=== PATIENT | male | born 1960 | race Caucasian/White ===

== ENCOUNTER 2018-07-27 05:34 | Day surgery (SDC) | payer OTHER ==
[~2018-07-27] VITALS: Ht 185.4 cm; Wt 110.3 kg
[2018-07-27] VITALS (13 sets, daily range): BP systolic 110–125; BP diastolic 69–78; PULSE 56–69; RESP 13–26; Ht 185.4 cm; Wt 110.3 kg
[2018-07-27] MEDS ORDERED: CEFAZOLIN 2 GM/50 ML (PMX) 50 ML IVPB ONE (07:00)
[2018-07-27] MEDS ORDERED: AMLO-147 PO (07:10)
[2018-07-27] MEDS ORDERED: ATEN100T PO (07:10)
[2018-07-27] MEDS ORDERED: ATOR10TA65 PO (07:11)
[2018-07-27] MEDS ORDERED: BENA40TA56 PO (07:11)
[2018-07-27] MEDS ORDERED: OMEP40CA6 PO (07:12)
[2018-07-27] MEDS ORDERED: HYDR25TA6 PO (07:12)
[2018-07-27] MEDS ORDERED: SUCR1TAB56 PO (07:13)
[2018-07-27] MEDS ORDERED: TRA100 PO (07:14)
[2018-07-27] MEDS ORDERED: METH750T2 PO (07:15)
--- NOTE | 2018-07-27 07:35 | PREAC ---
Date/Time of Note Date/Time of Note DATE: 07/27/18 TIME: 07:34 Anesthesia Eval and Record Evaluation Time Pre-Procedure Interview DATE: 07/27/18 TIME: 07:34 Age 57 Sex male NPO: 8 hrs Preoperative diagnosis Malfunction of spinal cord stimulator Planned procedure Removal of spinal cord stimulator, replacement with paddle led via thoracic laminectomy Past Medical History Past Medical History: Includes Cardio: HTN, Dyslipidemia GI: GERD Surgery & Anesthesia Issues No known issue Meds Anticoagulation: No Beta Miya within 24 hr: Yes Reported Medications Methocarbamol* (Methocarbamol*) 750 Mg Tablet, 750 MG PO Q6H PRN for MUSCLE SPASMS, TAB 07/27/18 Trazodone Hcl* (Trazodone Hcl*) 100 Mg Tablet, 100 MG PO QHS, #30 TAB 07/27/18 Sucralfate* (Carafate*) 1 Gm Tab, 1 GM PO BID, TAB 07/27/18 Omeprazole* (Omeprazole*) 40 Mg Capsule.dr, 40 MG PO QAM, #30 CAP 07/27/18 Hydrochlorothiazide* (Hydrochlorothiazide*) 25 Mg Tab, 25 MG PO QAM, #30 TAB 07/27/18 Atorvastatin Calcium (Atorvastatin Calcium) 10 Mg Tablet, 10 MG PO QHS, #30 TAB 07/27/18 Benazepril Hcl* (Benazepril Hcl*) 40 Mg Tablet, 40 MG PO QAM, #30 TAB 07/27/18 Atenolol* (Atenolol*) 100 Mg Tablet, 100 MG PO QAM, #30 TAB 07/27/18 Amlodipine Besylate* (Amlodipine Besylate*) 10 Mg Tablet, 10 MG PO QAM, #30 TAB 07/27/18 Meds reviewed: Yes Allergies Coded Allergies: aspirin (Verified Allergy, Severe, GI BLEED, 07/26/18) divalproex sodium (Verified Allergy, Severe, 07/26/18) oxcarbazepine (Verified Allergy, Severe, 07/26/18) valproic acid (Verified Allergy, Severe, 07/26/18) acetaminophen (Verified Allergy, Unknown, 07/27/18) methadone (Verified Allergy, Unknown, 07/27/18) orange juice (Verified Allergy, Unknown, 07/27/18) oxycodone (Verified Allergy, Unknown, 07/27/18) Allergies Reviewed: Yes Labs/Studies Labs Reviewed: Reviewed by anesthesiologist test: N/A Pre-procedure Exam Last vitals Vital Signs Date Temp Pulse Resp B/P (MAP) Pulse Ox O2 O2 Flow FiO2 Time Delivery Rate 07/27/18 97.8 69 18 117/74 95 Room Air 06:46 (88) Airway: Adequate mouth opening Mallampati: Mallampati II Teeth: Abnormal (ull upper denture and partial lower denture) Lung: Normal Heart: Normal ASA Physical Status ASA physical status: 2 Emergency: None Planned Anesthetic General/MAC: ETT Planned Pain Management Parenteral pain med Pre-operative Attestations Prior to commencing anesthesia and surgery, the patient was re-evaluated, there was verification of: *The patient's identity *The results of appropriate recent lab work and preoperative vital signs *The above evaluation not changing prior to induction *Anesthetic plan, risk benefits, alternative and complications discussed with patient/family; questions answered; patient/family understands, accepts and wishes to proceed. NICHOLE HDEZ MD July 27, 2018 07:35
[2018-07-27] MEDS ORDERED: THROMBIN 5000 UNIT VIAL ONE (07:36)
[2018-07-27] MEDS ORDERED: GELATIN SIZE 100 SPONGE ONE (07:36)
[2018-07-27] MEDS ORDERED: POLYMYXIN/BACITRACIN 1L IRRIG ONE (07:38)
[2018-07-27] MEDS ORDERED: FENTAnyl 50 MCG/ML VIAL ONE (07:38)
[2018-07-27] MEDS ORDERED: BUPIVACAINE 0.5%/EPI (SDV) 30 ML INJ ONE (07:38)
[2018-07-27] MEDS ORDERED: CA CHLORIDE 10% 10 ML SYRINGE ONE (07:38)
--- NOTE | 2018-07-27 07:44 | HPN ---
Date/Time of Note Date/Time of Note DATE: 07/27/18 TIME: 07:44 Interval H&P Admission Note Pt. seen H&P reviewed: No system changes LIZETT BAIG MD July 27, 2018 07:44
[2018-07-27] MEDS ORDERED: PROPOFOL 20 ML ONE (07:52)
[2018-07-27] MEDS ORDERED: GLYCOPYRROLATE 0.4 MG INJ ONE ×3 (07:52→08:54)
[2018-07-27] MEDS ORDERED: ROCURONIUM 50 MG INJ ONE ×2 (07:52→08:54)
[2018-07-27] MEDS ORDERED: NEOSTIGMINE 3 MG/3 ML SYRINGE ONE ×2 (07:52→08:54)
[2018-07-27] MEDS ORDERED: LIDOCAINE 2% (SDV) 5 ML INJ ONE (07:52)
[2018-07-27] MEDS ORDERED: SUCCINYLCHOLINE CHLORIDE 100 MG/5 ML SYG IV ONE (07:52)
[2018-07-27] MEDS ORDERED: MEPERIDINE 100 MG INJ ONE (07:53)
[2018-07-27] MEDS ORDERED: DIPHENHYDRAMINE 25 MG CAP PO PRN (08:00)
[2018-07-27] MEDS ORDERED: NALOXONE (0.4 MG/ML) INJ IV PRN (08:00)
[2018-07-27] MEDS ORDERED: HYDROmorphONE 2 MG TAB PO PRN (08:00)
[2018-07-27] MEDS ORDERED: ONDANSETRON 4 MG INJ IV PRN ×2 (08:00→10:30)
[2018-07-27] MEDS ORDERED: PROCHLORPERAZINE 10 MG TAB PO PRN (08:00)
[2018-07-27] MEDS ORDERED: CEPASTAT LOZENGE MT PRN (08:00)
[2018-07-27] MEDS ORDERED: DIPHENHYDRAMINE 50 MG INJ IV PRN ×2 (08:00→10:30)
[2018-07-27] MEDS ORDERED: HEPARIN 1000 UNITS/ML 10 ML INJ ONE (08:43)
[2018-07-27] MEDS ORDERED: CEFAZOLIN 1 GM INJ ONE (08:55)
[2018-07-27] MEDS ORDERED: ONDANSETRON 4 MG INJ ONE (08:55)
[2018-07-27] MEDS ORDERED: EPHEDrine 25 MG/5 ML SYG ONE (08:55)
[2018-07-27] MEDS ORDERED: BUPIVACAINE 0.25% (MPF) 30 ML INJ INJ ONE ×2 (09:30→10:30)
[2018-07-27] MEDS ORDERED: POLYMYXIN/BACITRACIN 1L IRRIG IRR ONE ×2 (09:32→10:30)
[2018-07-27] MEDS ORDERED: THROMBIN 5000 UNIT VIAL TOP ONE ×2 (09:33→10:30)
[2018-07-27] MEDS ORDERED: LABETALOL HCL 20MG INJ IV PRN (10:30)
[2018-07-27] MEDS ORDERED: EPHEDrine 25 MG/5 ML SYG IV PRN (10:30)
[2018-07-27] MEDS ORDERED: hydrALAzine 20 MG INJ IV PRN (10:30)
[2018-07-27] MEDS ORDERED: METOCLOPRAMIDE 10 MG INJ IV PRN (10:30)
[2018-07-27] MEDS ORDERED: FENTAnyl 50 MCG/ML VIAL IV PRN ×2 (10:30)
[2018-07-27] MEDS ORDERED: MEPERIDINE 25 MG INJ IV PRN (10:30)
[2018-07-27] MEDS ORDERED: MIDAZOLAM 1 MG/ML 2 ML INJ IV PRN (10:30)
--- NOTE | 2018-07-27 10:46 | SIPON ---
Date/Time of Note Date/Time of Note [id number] DATE: 07/27/18 TIME: 10:36 Operative Report Preoperative Diagnosis s/p percutaneous spinal cord stimulator lead with migration Postoperative Diagnosis same Operation/Procedure Performed removal of percutaneous leads, reattach to previously placed generator, placement of paddle leads via thoracic laminectomy, increased complexity due to scar tissue Surgeon see signature line assistant head cashier Janel Menezes NP Anesthesia: general Estimated blood loss: minimal Transfusion Required none Specimen none Grafts/Implants nevro Complications none LIZETT BAIG MD July 27, 2018 10:46
[2018-07-27] MEDS: FENTAnyl 50 MCG/ML VIAL IV PRN ×2 (10:53→11:06)
--- NOTE | 2018-07-27 11:50 | PAC ---
Date/Time of Note Date/Time of Note DATE: 07/27/18 TIME: 11:50 Post-Anesthesia Notes Post-Anesthesia Note Last documented vital signs Vital Signs Date Temp Pulse Resp B/P (MAP) Pulse Ox O2 O2 Flow FiO2 Time Delivery Rate 07/27/18 56 16 114/76 93 Room Air 11:35 (89) 07/27/18 97.8 10:45 Activity: WNL Respiratory function: WNL Cardiovascular function: WNL Mental status: Baseline Pain reasonably controlled: Yes Hydration appropriate: Yes Nausea/Vomiting absent: Yes Comments BT: 98.3 NICHOLE HDEZ MD July 27, 2018 11:50
[2018-07-27] MEDS ORDERED: CEFAZOLIN 1 GM/50 ML (PMX) 50 ML IVPB SCH (12:00)
--- NOTE | 2018-07-27 15:04 | OPR ---
DATE OF OPERATION: 07/27/2018 PREOPERATIVE DIAGNOSIS: Status post percutaneous spinal cord stimulator lead placement with migration with left superior gluteal region for placement of generator. POSTOPERATIVE DIAGNOSIS: Status post percutaneous spinal cord stimulator lead placement with migration with left superior gluteal region for placement of generator. OPERATION PERFORMED: 1. Removal of percutaneous leads. 2. Detachment from generator at the left superior gluteal region. 3. Placement of paddle lead via thoracic laminectomy. 4. Increased complexity secondary to scar tissue formation, added one hour to procedure to avoid injury to thecal sac and spinal cord. 5. Decompression of central thecal sac at the T11 to T12 level. 6. Use of intraoperative microscope for microsurgical technique and microdissection. 7. Use of intraoperative fluoroscopy for localization placement and instrumentation. 8. Use of intraoperative neuromonitoring for evaluation of spinal cord signals. 9. Placement of NuShield amniotic barrier. 10. Epidural catheter placement for epidural pain medication and removal of catheter. 11. Bone marrow aspiration for platelet-rich plasma. SURGEON: Joel Tripp MD [employer] PROFESSIONAL: Janel Menezes NP ANESTHESIA: General. ANESTHESIOLOGIST: Mao Gordillo MD ESTIMATED BLOOD LOSS: Minimal. TRANSFUSIONS: None. SPECIMENS: None. GRAFT IMPLANT: [employer] spinal cord stimulator paddle lead. COMPLICATIONS: None. BRIEF PREOPERATIVE HISTORY: The patient had undergone a prior percutaneous lead placement for spinal cord stimulator made by [employer]. This subsequently migrated and was not providing the same benefit as it was before. The patient was indicated for removal of the percutaneous leads and placement of the paddle lead via thoracic laminectomy. The patient had already had in place, so he had a pocket for his superior gluteal generate on the left side as well as percutaneous leads that were secured down in the mid lumbar spine. The patient understood the risks, benefits, alternatives and consented to surgery as stated above. OPERATION IN DETAIL: The patient was brought to the operating room, placed under anesthesia by Dr. Gordillo and was given 2 grams of Ancef. The patient was turned prone on Carlos frame and all bony prominences were appropriately padded. Thoracolumbar spine was prepped and draped in the usual sterile fashion and after timeout was performed and unanimously agreed upon by all members in the room, we started with our procedure after identifying the location of our placement of a thoracic laminectomy with x-ray guidance at T11 to T12 as well as evaluating for the proper location to remove the spinal cord stimulator generator at the left superior gluteal region. Once this was done, we started with our procedure by first making an incision over the generator and removing the generator and detaching it from the leads with the provided screwdriver that was taken and maintained on the field in a sterile location for later replantation. We now directed our attention to the midlumbar spine where the leads were secured down. We identified them. We removed their attachments and then pulled gently from the thoracic spine epidural space then redirected our attention to the T11 to T12 laminectomy site where we performed a subperiosteal dissection and verifying out with x-ray guidance of our proper position and then started with laminectomy at T11 to T12, exposing the thecal sac and removing any scar tissue that was noted in the field. We started gently placing the spinal cord stimulator into the epidural space paddle lead gently. Due to significant scar tissue formation, this increased complexity and added approximately 1 hour to surgical procedure for avoidance of spinal cord injury or CSF leak which did not occur during the procedure. Once placed the spinal cord paddle lead and verified its proper position on AP and lateral fluoroscopy, we secured down the leads with 2-0 Ethibond suture and then passed those wires with a passer to the superior gluteal region for attachment to the battery. During this time, all hemostasis was achieved. We copiously irrigated all open sites. We placed a NuShield barrier over the open laminotomy site and placed a bone marrow aspirate with platelet-rich plasma into the open laminotomy site. We also placed an epidural catheter in the epidural space inferior to our thoracic incision and then injected 4 mL of 0.25% Marcaine, 100 mcg of fentanyl for postop analgesia. Once concluded with the procedure, we started with closure with 0 Vicryl for the fascia, 2-0 Vicryl with subcutaneous skin and running 4-0 Monocryl. The wound was covered with Dermabond and clean, dry dressing at all 3 sites. No complications during the entire surgical procedure. The patient will be taken to recovery room and then discharged home today after another dose of antibiotics with instructions on discharge and follow up in the office in 7 to 10 days. Dictated By: JOEL CLARK/SUKHWINDER Conf#: [id number] DID#: [id number]
== END 2018-07-27 12:47 | disposition home or self-care (01) ==
LOC: SDS 05:34
PROVIDERS: ATTEND Orthopaedic Surgery Orthopaedic Surgery of the Spine
DX: T85.192A Other mechanical complication of implanted electronic neurostimulator of spinal cord electrode (lead), initial encounter (principal); Y79.3 Surgical instruments, materials and orthopedic devices (including sutures) associated with adverse incidents; Y83.8 Other surgical procedures as the cause of abnormal reaction of the patient, or of later complication, without mention of misadventure at the time of the procedure; I10 Essential (primary) hypertension
CPT/HCPCS: 63664; 72100; J0690; J1170; J1644; J2175; J2405; J2710; J3010; Z7610; 86999; V2790